=== PATIENT | female | born 1980 | race Caucasian/White ===

== ENCOUNTER → 2017-10-25 | Outpatient (REF) ==
[2017-10-25 15:56] LABS: RUBELLA IgG QUALITATIVE IMMUNE (IMMUNE)
[2017-10-27 10:19] LABS: HERPES ZOSTER, VARICELLA IgG 1042 index (Immune >165)
[2017-10-27 10:19] LABS: RUBEOLA IgG ANTIBODY 27.1 AU/mL (Immune >29.9)
== END ==
LOC: M LAB 14:54
DX: Z02.1 Encounter for pre-employment examination (principal)

== ENCOUNTER 2018-02-12 01:48 | Emergency (ER) | payer OTHER ==
[2018-02-12 03:27] LABS: BASO % 0.5 % (0.0-1.0); EOS # 0.1 10^3/uL (0.0-0.50); EOS % 0.8 % (0.0-3.0); HEMATOCRIT 42.6 % (36.0-47.0); HEMOGLOBIN 14.3 g/dl (12.0-15.5); IMMATURE GRANULOCYTE % 0.3 % (0-3.0); LYMPH # 2.9 10^3/uL (1.5-4.5); LYMPH % 37.3 % (24.0-44.0); MEAN CORPUSCULAR HEMOGLOBIN 29.5 pg (27.0-33.0); MEAN CORPUSCULAR HGB CONC 33.6 g/dl (32.0-36.5); MONO # 0.6 10^3/uL (0.0-0.8); MONO % 7.5 % (0.0-5.0); NEUTROPHILS # 4.2 10^3/uL (1.8-7.7); NEUTROPHILS % 53.6 % (36.0-66.0); PLATELET COUNT, AUTOMATED 285 10^3/uL (150-450); RED BLOOD COUNT 4.84 10^6/uL (4.00-5.40); RED CELL DISTRIBUTION WIDTH 12.1 % (11.5-14.5); WHITE BLOOD COUNT 7.9 10^3/uL (4.0-10.0)
[2018-02-12 04:21] LABS: HIVEXPOSED0 NEGATIVE (NEGATIVE)
[2018-02-12 04:25] LABS: CONTROL LINE INT CTR LINE PRESENT; HIV EXPOSED PT 1 NEGATIVE (NEGATIVE)
[2018-02-12 07:49] LABS: ALBUMIN 4.2 GM/DL (3.2-5.2); ALBUMIN/GLOBULIN RATIO 1.24 (1.00-1.93); ALKALINE PHOSPHATASE 80 U/L (45-117); ALT/SGPT 37 U/L (12-78); ANION GAP 9 MEQ/L (8-16); AST/SGOT 21 U/L (7-37); BILIRUBIN,TOTAL 0.4 MG/DL (0.2-1.0); BLOOD UREA NITROGEN 13 MG/DL (7-18); CALCIUM LEVEL 9.3 MG/DL (8.5-10.1); CARBON DIOXIDE LEVEL 25 MEQ/L (21-32); CHLORIDE LEVEL 111 MEQ/L (98-107); CREATININE FOR GFR 0.82 MG/DL (0.55-1.30); GLOMERULAR FILTRATION RATE > 60.0 (>60); GLUCOSE, FASTING 87 MG/DL (70-100); POTASSIUM SERUM 4.3 MEQ/L (3.5-5.1); SODIUM LEVEL 145 MEQ/L (136-145); TOTAL PROTEIN 7.6 GM/DL (6.4-8.2)
[2018-02-12 11:41] LABS: HEPATITIS B SURFACE ANTIBODY NEGATIVE (POSITIVE)
[2018-02-12 11:51] LABS: HEPATITIS B SURFACE ANTIGEN NEGATIVE (NEGATIVE)
[2018-02-12 12:19] LABS: HEPATITIS C VIRUS ABY INDEX 0.1 INDEX (<0.8)
== END 2018-02-12 03:28 | disposition home or self-care (01) ==
LOC: M ED 01:48
DX: Z77.21 Contact with and (suspected) exposure to potentially hazardous body fluids (principal)
CPT/HCPCS: 80053

== ENCOUNTER 2018-02-18 07:05 | Emergency (ER) | payer OTHER ==
[2018-02-18] MEDS: ERYTHROMYCIN OPHTH OINT OS (07:26)
== END 2018-02-18 07:48 | disposition home or self-care (01) ==
LOC: M ED 07:05
DX: H10.32 Unspecified acute conjunctivitis, left eye (principal)
CPT/HCPCS: 99283

== ENCOUNTER → 2019-01-07 | Outpatient (REF) | payer OTHER ==
[~2019-01-07] MED LIST: ERYTOIN8 OS; MEDR150I10
[2019-01-07 14:09] LABS: BASO % 0.6 % (0.0-1.0); EOS # 0.1 10^3/uL (0.0-0.50); EOS % 0.9 % (0.0-3.0); HEMATOCRIT 43.1 % (36.0-47.0); HEMOGLOBIN 14.4 g/dl (12.0-15.5); LYMPH # 2.1 10^3/uL (1.5-4.5); LYMPH % 39.1 % (24.0-44.0); MEAN CORPUSCULAR HEMOGLOBIN 30.2 pg (27.0-33.0); MEAN CORPUSCULAR HGB CONC 33.4 g/dl (32.0-36.5); MEAN CORPUSCULAR VOLUME 90.4 fl (80.0-96.0); MONO # 0.4 10^3/uL (0.0-0.8); MONO % 7.5 % (0.0-5.0); NEUTROPHILS # 2.8 10^3/uL (1.8-7.7); NEUTROPHILS % 51.9 % (36.0-66.0); PLATELET COUNT, AUTOMATED 302 10^3/uL (150-450); RED BLOOD COUNT 4.77 10^6/uL (4.00-5.40); WHITE BLOOD COUNT 5.3 10^3/uL (4.0-10.0)
[2019-01-07 14:29] LABS: ERYTHROCYTE SEDIMENTATION RATE 11 mm/hr (0-20)
[2019-01-07 14:35] LABS: ALBUMIN 3.9 GM/DL (3.2-5.2); ALT/SGPT 32 U/L (12-78); BILIRUBIN,TOTAL 0.4 MG/DL (0.2-1.0); BLOOD UREA NITROGEN 11 MG/DL (7-18); C REACTIVE PROTEIN QUANTITATIV < 0.30 MG/DL (0.00-0.30); CALCIUM LEVEL 9.5 MG/DL (8.5-10.1); CARBON DIOXIDE LEVEL 28 MEQ/L (21-32); CHLORIDE LEVEL 110 MEQ/L (98-107); CPK CREATINE PHOSPHOKINASE 75 U/L (26-192); CREATININE FOR GFR 1.03 MG/DL (0.55-1.30); GLOMERULAR FILTRATION RATE > 60.0 (>58); GLUCOSE, FASTING 78 MG/DL (70-100); POTASSIUM SERUM 4.4 MEQ/L (3.5-5.1); SODIUM LEVEL 141 MEQ/L (136-145); TOTAL PROTEIN 7.4 GM/DL (6.4-8.2)
[2019-01-09 11:06] LABS: ANA (HEP2) Negative (.); CYCLIC CITRULLINATED PEPTIDE 3 units (0-19); RMSFIGG1 Negative (Negative)
== END ==
LOC: M SFHCPLAZ 11:55
PROVIDERS: ATTEND Internal Medicine Infectious Disease
DX: L30.9 Dermatitis, unspecified (principal); A77.0 Spotted fever due to Rickettsia rickettsii

== ENCOUNTER 2019-04-12 11:35 | Day surgery (SDC) | payer OTHER ==
[~2019-04-12] VITALS: Ht 165.1 cm; Wt 107.0 kg
[~2019-04-12 11:35] MED LIST changes: +BUPR150T3 PO; +DEPO150I IM; +FAMO20TA PO; +LOPE2TAB12 PO; +NS 1,000 ML IV ONE; +ONDA4TAB6 PO; +TOPI50TA9 PO; +[UNRECOGNIZED DRUG - CODE] PO
[2019-04-12] MEDS ORDERED: LIDOCAINE 2% INJ 100 MG/5 ML SDV (FOR ANES.) As Ordered ONE ×2 (12:13→13:10)
[2019-04-12] MEDS ORDERED: PROPOFOL 200 MG/20 ML VIAL As Ordered ONE ×2 (12:13→13:10)
--- NOTE | 2019-04-12 14:00 | ROOR ---
Patient Name: Lorena Galindo Procedure Date: 04/12/2019 1:02 PM Date of : 1980 Age: 38 Room: [facility] Gender: Female Note Status: Finalized Procedure: Upper GI endoscopy Indications: Dyspepsia, Weight loss Providers: Tyree Clark MD Referring MD: MARINE SUMNER MD Requesting Provider: Medicines: Monitored Anesthesia Care Complications: No immediate complications. Procedure: Pre-Anesthesia Assessment: - Prior to the procedure, a History and Physical was performed, and patient medications and allergies were reviewed. The patient is competent. The risks and benefits of the procedure and the sedation options and risks were discussed with the patient. All questions were answered and informed consent was obtained. Patient identification and proposed procedure were verified by the physician, the nurse and the anesthesiologist in the procedure room. Mental Status Examination: alert and oriented. Airway Examination: normal oropharyngeal airway and neck mobility. Respiratory Examination: clear to auscultation. CV Examination: normal. Prophylactic Antibiotics: The patient does not require prophylactic antibiotics. Prior Anticoagulants: The patient has taken no previous anticoagulant or antiplatelet agents. ASA Grade Assessment: II - A patient with mild systemic disease. After reviewing the risks and benefits, the patient was deemed in satisfactory condition to undergo the procedure. The anesthesia plan was to use monitored anesthesia care (MAC). Immediately prior to administration of medications, the patient was re-assessed for adequacy to receive sedatives. The heart rate, respiratory rate, oxygen saturations, blood pressure, adequacy of pulmonary ventilation, and response to care were monitored throughout the procedure. The physical status of the patient was re-assessed after the procedure. The Endoscope was introduced through the mouth, and advanced to the second part of duodenum. The upper GI endoscopy was accomplished without difficulty. The patient tolerated the procedure well. Findings: The examined esophagus was normal. The Z-line was regular and was found 38 cm from the incisors. Scattered mild inflammation characterized by erythema, friability and granularity was found in the gastric antrum. Biopsies were taken with a cold forceps for Helicobacter pylori testing. Verification of patient identification for the specimen was done by the physician and nurse using the patient's name, date and medical record number. Estimated blood loss was minimal. A single 10 mm mucosal nodule with a localized distribution was found in the duodenal bulb. Biopsies were taken with a cold forceps for histology. The second portion of the duodenum and major papilla were normal. Biopsies for histology were taken with a cold forceps for evaluation of celiac disease. Impression: - Normal esophagus. - Z-line regular, 38 cm from the incisors. - Gastritis. Biopsied. - Mucosal nodule found in the duodenum. Biopsied. - Normal second portion of the duodenum and major papilla. Biopsied. Recommendation: - Patient has a contact number available for emergencies. The signs and symptoms of potential delayed complications were discussed with the patient. Return to normal activities tomorrow. Written discharge instructions were provided to the patient. - Resume previous diet. - Continue present medications. - Await pathology results. - Return to GI clinic in [facility] (address [address], [address], [place] [address]) in 4 -- 6 weeks. Please call GI clinic @ [phone] for apppointment date and time. - Return to primary care physician. Tyree Clark MD Tyree Clark MD 04/12/2019 1:59:51 PM Electronically signed by Tyree Clark MD Number of Addenda: 0 Note Initiated On: 04/12/2019 1:02 PM Estimated Blood Loss: Estimated blood loss was minimal.
[2019-04-12 14:09] VITALS: BP 99/50
--- NOTE | 2019-04-12 14:16 | ROOR ---
Patient Name: Lorena Galindo Procedure Date: 04/12/2019 1:04 PM Date of : 1980 Age: 38 Room: [facility] Gender: Female Note Status: Finalized Procedure: Colonoscopy Indications: Chronic diarrhea, Weight loss Providers: Tyree Clark MD Referring MD: MARINE SUMNER MD Requesting Provider: Medicines: Monitored Anesthesia Care Complications: No immediate complications. Procedure: Pre-Anesthesia Assessment: - Prior to the procedure, a History and Physical was performed, and patient medications and allergies were reviewed. The patient is competent. The risks and benefits of the procedure and the sedation options and risks were discussed with the patient. All questions were answered and informed consent was obtained. Patient identification and proposed procedure were verified by the physician, the nurse and the anesthesiologist in the procedure room. Mental Status Examination: alert and oriented. Airway Examination: normal oropharyngeal airway and neck mobility. Respiratory Examination: clear to auscultation. CV Examination: normal. Prophylactic Antibiotics: The patient does not require prophylactic antibiotics. Prior Anticoagulants: The patient has taken no previous anticoagulant or antiplatelet agents. ASA Grade Assessment: II - A patient with mild systemic disease. After reviewing the risks and benefits, the patient was deemed in satisfactory condition to undergo the procedure. The anesthesia plan was to use monitored anesthesia care (MAC). Immediately prior to administration of medications, the patient was re-assessed for adequacy to receive sedatives. The heart rate, respiratory rate, oxygen saturations, blood pressure, adequacy of pulmonary ventilation, and response to care were monitored throughout the procedure. The physical status of the patient was re-assessed after the procedure. The Colonoscope was introduced through the anus and advanced to the terminal ileum, with identification of the appendiceal orifice and IC valve. The colonoscopy was performed without difficulty. The patient tolerated the procedure well. The quality of the bowel preparation was good. The terminal ileum, ileocecal valve, appendiceal orifice, and rectum were photographed. Scope insertion time was 3 minutes. Scope withdrawal time was 9 minutes. The total duration of the procedure was 12 minutes. Findings: The digital rectal exam findings include decreased sphincter tone. Pertinent negatives include no palpable rectal lesions. The terminal ileum appeared normal. A 5 mm polyp was found in the ascending colon. The polyp was sessile. The polyp was removed with a cold biopsy forceps. Resection and retrieval were complete. Verification of patient identification for the specimen was done by the physician and nurse using the patient's name, date and medical record number. Estimated blood loss was minimal. Normal mucosa was found in the entire colon. Biopsies for histology were taken with a cold forceps from the right colon, left colon and rectosigmoid colon for evaluation of microscopic colitis. Non-bleeding external and internal hemorrhoids were found during endoscopy. The hemorrhoids were medium-sized. Retroflexion in the rectum was not performed due to unusual anatomy. Impression: - Decreased sphincter tone found on digital rectal exam. - The examined portion of the ileum was normal. - One 5 mm polyp in the ascending colon, removed with a cold biopsy forceps. Resected and retrieved. - Normal mucosa in the entire examined colon. Biopsied. - Non-bleeding external and internal hemorrhoids. Recommendation: - Patient has a contact number available for emergencies. The signs and symptoms of potential delayed complications were discussed with the patient. Return to normal activities tomorrow. Written discharge instructions were provided to the patient. - High fiber diet. - Continue present medications. - Await pathology results. - Perform Kegel exercises daily. - Repeat colonoscopy in 5-10 years for surveillance based on pathology results. - Return to GI clinic in [facility] (address [address], [address], [place], [address]) in 4 -- 6 weeks. Please call GI clinic @ [phone] for apppointment date and time. - Return to primary care physician. Tyree Clark MD Tyree Clark MD 04/12/2019 2:16:14 PM Electronically signed by Tyree Clark MD Number of Addenda: 0 Note Initiated On: 04/12/2019 1:04 PM Estimated Blood Loss: Estimated blood loss was minimal.
== END 2019-04-12 14:40 | disposition home or self-care (01) ==
LOC: M OPP 11:35
PROVIDERS: ATTEND Internal Medicine Gastroenterology
DX: K62.89 Other specified diseases of anus and rectum (principal); K64.8 Other hemorrhoids; D12.2 Benign neoplasm of ascending colon; K52.9 Noninfective gastroenteritis and colitis, unspecified; R63.4 Abnormal weight loss; K29.70 Gastritis, unspecified, without bleeding; K31.89 Other diseases of stomach and duodenum; R10.13 Epigastric pain; Z79.899 Other long term (current) drug therapy

== ENCOUNTER → 2019-07-09 | Outpatient (CLI) | payer OTHER ==
[~2019-07-09] MED LIST changes: -NS 1,000 ML IV ONE
[2019-07-09 10:52] LABS: BASO % 0.5 % (0.0-1.0); EOS % 0.7 % (0.0-3.0); HEMATOCRIT 41.3 % (36.0-47.0); HEMOGLOBIN 13.6 g/dl (12.0-15.5); LYMPH # 2.3 10^3/uL (1.5-5.0); LYMPH % 38.9 % (24.0-44.0); MEAN CORPUSCULAR HEMOGLOBIN 29.4 pg (27.0-33.0); MEAN CORPUSCULAR HGB CONC 32.9 g/dl (32.0-36.5); MEAN CORPUSCULAR VOLUME 89.4 fl (80.0-96.0); MONO # 0.4 10^3/uL (0.0-0.8); NEUTROPHILS # 3.2 10^3/uL (1.5-8.5); NEUTROPHILS % 52.6 % (36.0-66.0); PLATELET COUNT, AUTOMATED 255 10^3/uL (150-450); RED BLOOD COUNT 4.62 10^6/uL (4.00-5.40)
[2019-07-09 11:22] LABS: ALBUMIN 3.9 GM/DL (3.2-5.2); ALT/SGPT 47 U/L (12-78); BILIRUBIN,TOTAL 0.5 MG/DL (0.2-1.0); BLOOD UREA NITROGEN 18 MG/DL (7-18); CALCIUM LEVEL 9.2 MG/DL (8.5-10.1); CARBON DIOXIDE LEVEL 26 MEQ/L (21-32); CHLORIDE LEVEL 112 MEQ/L (98-107); CREATININE FOR GFR 1.03 MG/DL (0.55-1.30); GLOMERULAR FILTRATION RATE > 60.0 (>58); GLUCOSE, FASTING 86 MG/DL (70-100); POTASSIUM SERUM 4.2 MEQ/L (3.5-5.1); SODIUM LEVEL 142 MEQ/L (136-145); TOTAL PROTEIN 7.3 GM/DL (6.4-8.2)
[2019-07-11 00:07] LABS: RMSFIGG1 Negative (Negative); ROCKY MTN SPOTTED FEVER IgM 1.36 index (0.00-0.89)
== END ==
LOC: M LAB 09:58
PROVIDERS: ATTEND Dermatology
DX: A77.0 Spotted fever due to Rickettsia rickettsii (principal); L71.9 Rosacea, unspecified

== ENCOUNTER → 2024-02-01 | Outpatient (REF) ==
[~2024-02-01] MED LIST changes: +B-12100021 PO; +BUPR-597 PO; +BUPR150T12 PO; -BUPR150T3 PO; +BUSP15TA47 PO; +BUSP7.5T7 PO; +CALC315T2 PO; +HYDR100C PO; -MEDR150I10; +MEDR150I13; +MELA10CA6 PO; +OMEP40CA4 PO; +ONDA-282 PO; -ONDA4TAB6 PO; +PARO30TA4 PO; +PARO40TA3 PO; +TOPI-21 PO; -TOPI50TA9 PO; +VITMTA PO; -[UNRECOGNIZED DRUG - CODE] PO
== END ==
LOC: M EMP 08:09
PROVIDERS: ATTEND Family Medicine
DX: Z20.828 Contact with and (suspected) exposure to other viral communicable diseases (principal)

== ENCOUNTER → 2024-02-02 | Outpatient (REF) | LOC: M EMP 13:06 | PROVIDERS: ATTEND Family Medicine | DX: Z11.52 Encounter for screening for COVID-19 (principal) ==